=== PATIENT | female | born 1955 ===

== ENCOUNTER 2024-11-22 14:23 | Emergency (ER) | payer MEDICARE, OTHER | END 2024-11-22 15:52 | disposition home or self-care (01) | LOC: DL.ED 14:23 | DX: S09.93XA Unspecified injury of face, initial encounter (principal); I10 Essential (primary) hypertension; Z79.899 Other long term (current) drug therapy; W22.8XXA Striking against or struck by other objects, initial encounter; Y93.89 Activity, other specified | CPT/HCPCS: 99283; 99284; A9270; Q0164 ==